=== PATIENT | female | born 1970 | race Caucasian/White ===

== ENCOUNTER 2020-11-02 11:29 | Emergency (ER) | payer OTHER ==
[2020-11-02 11:40] VITALS: BP 151/89; PULSE 80; TEMP 98.9; BMI 29.0
== END 2020-11-02 13:42 | disposition home or self-care (01) ==
LOC: JERFT 11:29
DX: M79.605 Pain in left leg (principal)
CPT/HCPCS: 99282-25

== ENCOUNTER 2021-02-09 10:17 | Emergency (ER) | payer OTHER ==
[2021-02-09 10:22] VITALS: BP 136/78; PULSE 82; TEMP 98.1; BMI 30.6
== END 2021-02-09 11:35 | disposition home or self-care (01) ==
LOC: JERFT 10:17
DX: H10.45 Other chronic allergic conjunctivitis (principal)
CPT/HCPCS: 99283-25

== ENCOUNTER 2021-03-15 10:53 | Emergency (ER) | payer OTHER ==
[2021-03-15 11:10] VITALS: TEMP 98.3
[2021-03-15] MEDS ORDERED: LACTATED RINGERS SOLUTION 1000 ML INFUS.BAG IV ONE (12:03)
[2021-03-15] MEDS ORDERED: PROCHLORPERAZINE INJECTION 10 MG/2 ML VIAL IVPB ONE (12:03)
[2021-03-15] MEDS ORDERED: ACETAMINOPHEN 1000 MG/100 ML VIAL (NON FORMULARY) IVPB ONE (12:03)
[2021-03-15] MEDS ORDERED: ACETAMINOPHEN INJECTION 100 ML IVPB ONE (12:26)
[2021-03-15] MEDS ORDERED: KETOROLAC TROMETHAMINE 15 MG/ML VIAL IVPUSH ONE (14:00)
[2021-03-15] MEDS ORDERED: KETOROLAC TROMETHAMINE 15 MG/ML VIAL ONE (14:14)
[2021-03-15 15:47] VITALS: BP 141/87; PULSE 66
== END 2021-03-15 18:04 | disposition home or self-care (01) ==
LOC: JER 10:53
PROC: 3E0333Z Introduction of Anti-inflammatory into Peripheral Vein, Percutaneous Approach (ICD-10-PCS; principal; 2021-03-15)
PROC: 3E033NZ Introduction of Analgesics, Hypnotics, Sedatives into Peripheral Vein, Percutaneous Approach (ICD-10-PCS; 2021-03-15)
PROC: 3E033GC Introduction of Other Therapeutic Substance into Peripheral Vein, Percutaneous Approach (ICD-10-PCS; 2021-03-15)
DX: R51.9 Headache, unspecified (principal)
CPT/HCPCS: 96374; 96375; 99284-25; J0131

== ENCOUNTER 2024-05-01 13:48 | Emergency (ER) | payer OTHER ==
[2024-05-01 14:00] VITALS: BP 124/75; PULSE 80; RESP 18; TEMP 98.4; BMI 26.3
[2024-05-01] MEDS ORDERED: KETOROLAC TROMETHAMINE 30 MG/1 ML VIAL ONE (15:51)
[2024-05-01] MEDS: KETOROLAC TROMETHAMINE 30 MG/1 ML VIAL IM ONE (16:00)
[2024-05-01 16:22] LABS: URINE APPEARANCE CLEAR; URINE BILIRUBIN NEGATIVE (NEGATIVE); URINE COLOR YELLOW; URINE GLUCOSE (UA) NEGATIVE (NEGATIVE); URINE KETONE NEGATIVE (NEGATIVE); URINE LEUK ESTERASE NEGATIVE (NEGATIVE); URINE NITRITE NEGATIVE (NEGATIVE); URINE PROTEIN NEGATIVE (NEGATIVE); URINE UROBILINOGEN 0.2 mg/dL (0.2-1.0)
== END 2024-05-01 18:43 | disposition home or self-care (01) ==
LOC: JERFT 13:48
PROC: 3E0333Z Introduction of Anti-inflammatory into Peripheral Vein, Percutaneous Approach (ICD-10-PCS; principal; 2024-05-01)
DX: S39.012A Strain of muscle, fascia and tendon of lower back, initial encounter (principal); X50.1XXA Overexertion from prolonged static or awkward postures, initial encounter; Y99.0 Civilian activity done for income or pay
CPT/HCPCS: 81003; 87086; 99284-25